=== PATIENT | female | born 1995 | race Caucasian/White ===

== ENCOUNTER 2016-05-12 08:31 | Emergency (ER) ==
[2016-05-12 09:45] LABS: MANUAL DIFF NEEDED? NO
[2016-05-12 09:46] LABS: BASO% 0.3 % (0.0-0.8); EOS# 0.26 X1000 (0.0-0.7); EOS% 3.3 % (0.0-10.0); HEMATOCRIT 43.3 % (37.0-47.0); HEMOGLOBIN 14.9 g/dL (12.0-16.0); IMM GRAN# 0.02 X1000 (0.0-0.04); IMM GRAN% 0.3 % (0.0-0.5); LYMPH# 1.31 X1000 (1.2-3.4); LYMPH% 16.4 % (20.5-51.1); MCH 32.4 PG (27-31); MCHC 34.4 g/dL (33-37); MCV 94.1 FL (81-99); MONO% 6.3 % (1.7-9.3); MPV 12.4 FL (7.4-10.4); NEUT% 73.4 % (42.2-75.2); PLT 167 X1000 (130-400)
[2016-05-12 10:06] LABS: AGAP 11; BUN 6 mg/dL (8-22); CALCIUM 9.2 mg/dL (8.8-10.2); CHLORIDE 103 mmol/L (98-107); COSMO 277; SODIUM 140 mmol/L (136-145); TCO2 27 mmol/L (25-35)
[2016-05-12] MEDS ORDERED: ZOFRAN ODT PO ONE (10:17)
[2016-05-12 10:20] LABS: URINE SOURCE CLEAN CATCH
--- NOTE | 2016-05-12 10:31 | PROVIDER DOCUMENTATION ---
HPI-General Adult <Danielle Moncada - Last Filed: 05/12/16 10:40> - General Source: patient - History of Present Illness -Gen Adult Nature of Presenting Problems: Reports has had cold symptoms x 1 week and this am started having n,v,d. Denies fever,chills,rectal bleeding. Quality of Pain: reports: none Severity: reports: mild Onset/Duration: reports: this morning Timing: reports: still present Similar Symptoms Previously?: No Recently seen or treated by another doctor?: No <Patt Cordero - Last Filed: 05/12/16 15:19> - General Chief Complaint: N/V/D Stated Complaint: COLD SX/VOMITING Time Seen by Provider: 05/12/16 10:00 Allergies/Adverse Reactions: Patient Allergies Allergy/AdvReac Type Severity Reaction Status Date / Time sulfamethoxazole Allergy Severe RASH Verified 04/08/16 01:01 [From ] trimethoprim [From ] Allergy Severe RASH Verified 04/08/16 01:01 Home Medications: Home Medication List Medication Instructions Recorded Confirmed Last Taken Type Hydroxyzine HCl 25 mg PO DAILY #20 tablet 04/08/16 Unknown Rx Permethrin 5% Cream [Elimite 5% 1 applicatn TOP DAILY #1 tube 04/08/16 Unknown Rx Cream] Nitrofurantoin Monohyd/M-Cryst 100 mg PO BID #20 capsule 05/12/16 Unknown Rx [Macrobid 100 mg Capsule] Ondansetron [Zofran] 4 mg PO Q6H PRN PRN #15 tablet 05/12/16 Unknown Rx Review of Systems - Adult - REVIEW OF SYSTEMS - ADULT Constitutional: denies: chills, fever, fatique Eyes: reports: no symptoms reported Ears, Nose, Mouth & Throat: reports: sinus problem. denies: ear pain, throat pain Cardiovascular: denies: chest pain, irregular heart rate, orthopnea, syncope Respiratory: reports: cough. denies: shortness of breath, wheezing Gastrointestinal: reports: diarrhea, nausea, vomiting. denies: abdominal pain, difficulty swallowing, frequent heartburn Genitourinary: reports: no symptoms reported Musculoskeletal: reports: no symptoms reported Integumentary: reports: no symptoms reported Neurological: reports: no symptoms reported Psychiatric: reports: no symptoms reported Endocrine: reports: no symptoms reported Hematologic/Lymphatic: reports: no symptoms reported Allergic/Immunologic: reports: no symptoms reported All Other Systems: Reviewed and Negative <GilPatt - Last Filed: 05/12/16 15:19> Past History - Adult - PAST MEDICAL HISTORY-ADULT Review of Records: reports: Nursing Assessment Review, Medications Reviewed Major Childhood Illnesses: reports: denies history Cardiovascular: reports: denies history Respiratory: reports: denies history Gastrointestinal: reports: GERD Obstetrical/Gynecological: reports: denies history Genitourinary: reports: denies history Musculoskeletal: reports: denies history Neurological: reports: denies history Endocrine/Immune: reports: denies history Other Conditions: reports: denies history - IMMUNIZATION STATUS Childhood Immunizations: See Nurse Assessment Flu Vaccine: See Nurse Assessment - FAMILY HISTORY Family History: reviewed, not pertinent - SOCIAL HISTORY Smoking: cigarettes, less than 1 pack/day Provider spent 3-5 mins advising pt. on dangers of tobacco.: Discussed manners to quit use, and f/u contacts for add'l counseling. Substance Use: alcohol <CorderoPatt - Last Filed: 05/12/16 15:19> Physical Exam-General - PHYSICAL EXAM-ADULT Initial Vital Signs Reviewed: Yes - CONSTITUTIONAL General Appearance: appears well, alert, no apparent distress - EYES Eyes: PERRL/EOMI - HEAD, EARS, NOSE, MOUTH & THROAT HENMT: moist mucous membranes, normal ENT inspection, TMs normal, pharynx normal - RESPIRATORY Respiratory: chest non-tender, lungs clear, normal breath sounds, no pleuratic chest pain, no respiratory distress - CARDIOVASCULAR Cardiovascular: regular rate, rhythm - GASTROINTESTINAL (ABDOMEN) Abdominal Exam: normal bowel sounds, non tender, soft, no organomegaly, no pulsatile mass - MUSCULOSKELETAL Extremity: normal range of motion, non-tender - SKIN Integumentary: normal color, normal turgor, warm/dry - PSYCHIATRIC Psych/Mental Status: normal mood/affect, normal thought content, normal thought process, oriented x 3 <GilPatt - Last Filed: 05/12/16 15:19> Progress - PLAN OF CARE/RESULTS Progress/Plan/Lab Results: Orders Category Date Time Status BMP [BASIC METABOLIC PANEL] [CHEM] Stat Lab 05/12/16 09:42 Completed CBC WITH DIFF [HEME] Stat Lab 05/12/16 09:42 Completed TEST-URINE [PREG] Stat Lab 05/12/16 10:[address] [URINALYSIS] Stat Lab 05/12/16 10:19 Results Ondansetron Odt [Zofran Odt] Med 05/12/16 10:17 Discontinued 4 mg PO NOW ONE Vital Signs - 24 hr 05/12/16 08:36 Temperature 98.2 F Pulse Rate 104 H Respiratory 18 Rate Blood Pressure 106/81 O2 Sat by Pulse 100 Oximetry Laboratory Tests 05/12/16 05/12/16 05/12/16 09:42 09:42 10:19 WBC 7.98 RBC 4.60 Hgb 14.9 Hct 43.3 MCV 94.1 MCH 32.4 H MCHC 34.4 RDW Std Deviation 12.2 Plt Count 167 MPV 12.4 H Immature Gran % (Auto) 0.3 Neut % (Auto) 73.4 Lymph % (Auto) 16.4 L [place] % (Auto) 6.3 Eos % (Auto) 3.3 Baso % (Auto) 0.3 Immature Gran # (Auto) 0.02 Neut # (Auto) 5.87 Lymph # (Auto) 1.31 [place] # (Auto) 0.50 Eos # (Auto) 0.26 Baso # (Auto) 0.02 Sodium 140 Potassium 4.0 Chloride 103 Carbon Dioxide 27 Anion Gap 11 BUN 6 L Creatinine 0.6 Estimated GFR/1.73 m2 > 60 BUN/Creatinine Ratio 10 Glucose 91 Calculated Osmolality 277 Calcium 9.2 Urine Source CLEAN CATCH <Patt Cordero - Last Filed: 05/12/16 15:19> Departure - Departure Time of Disposition Order: 10:40 Certified Medical Emergency: Emergent <Danielle Moncada - Last Filed: 05/12/16 10:40> - Departure Time of Disposition Order: 15:19 Certified Medical Emergency: Emergent <Patt Cordero - Last Filed: 05/12/16 15:19> - Departure DIAGNOSIS: UTI (urinary tract infection) Qualifiers: Urinary tract infection type: site unspecified Hematuria presence: without hematuria Qualified Code(s): N39.0 - Urinary tract infection, site not specified Disposition: HOME 01 Condition: Stable Additional Instructions: ED Follow Up Instructions: You have been treated by a care provider in the Emergency Department. These instructions are being provided to you so you can have an understanding of how to care for yourself upon discharge. Upon discharge from the Emergency Department, you are responsible for making arrangements for follow-up care by a physician of your choice. Take all prescribed medications as directed. Return to the Emergency Department immediately for any new or worsening symptoms. You may call the Physician Referral phone number at [phone] to obtain a list of Physicians who are taking new patients. Prescriptions: Nitrofurantoin Monohyd/M-Cryst [Macrobid 100 mg Capsule] 100 mg PO BID #20 capsule Ondansetron [Zofran] 4 mg PO Q6H PRN PRN #15 tablet PRN Reason: Nausea Referrals: Rose Bhardwaj MD [STAFF PHYSICIAN] - Forms: Return to School/Parent Work Instructions: Nitrofurantoin tablets or capsules, Ondansetron tablets, Urinary Tract Infection, [id number] Attestation - Physician/ ARTEMIO Attestation Patient care was provided by Advanced Practice Provider:: Yes Advanced Practice Provider:: Danielle Moncada Advanced Practice Provider documentation review:: The Mid-level provider documentation, treatment plan and medical decision making was reviewed by the physician who agrees with all treatment and medical decision making by the P. <Danielle Moncada - Last Filed: 05/12/16 10:40> - Scribe Verification/Attestation Scribe:: Patt Cordero Acting as Scribe for:: Danielle Moncada Scribe documention review:: This chart was documented by a scribe and accurately reflects the service the provider performed and the decisions made by the provider. <Patt Cordero - Last Filed: 05/12/16 15:19> Physician Attestation
[2016-05-12 10:35] LABS: BILIRUBIN URINE NEGATIVE (NEGATIVE); BLOOD URINE NEGATIVE (NEGATIVE); CLARITY CLEAR (CLEAR); COLOR AMBER; GLUCOSE URINE NEGATIVE (NEGATIVE); LEUKOCYTES URINE 1+ (NEGATIVE); NITRITE URINE NEGATIVE (NEGATIVE); PH URINE 6.5; PROTEIN URINE TRACE mg/dL (NEGATIVE); URINE MICROSCOPIC NEEDED? YES; UROBILINOGEN URINE NORMAL
[2016-05-12 10:36] LABS: URINE EPITHELIAL CELLS >10 /HPF (<10); URINE RBC <10 /HPF (<10)
[2016-05-12 11:11] VITALS: BP 115/80
== END 2016-05-12 11:11 | disposition home or self-care (01) ==
LOC: P.ED 08:31
DX: N39.0 Urinary tract infection, site not specified (principal); R11.2 Nausea with vomiting, unspecified; R19.7 Diarrhea, unspecified; R05 Cough; K21.9 Gastro-esophageal reflux disease without esophagitis; F17.210 Nicotine dependence, cigarettes, uncomplicated; Z71.6 Tobacco abuse counseling; Z79.899 Other long term (current) drug therapy
CPT/HCPCS: 36415; 80048; 81001; 81025; 85025; 99283